=== PATIENT | male | born 1965 | race Caucasian/White ===

== ENCOUNTER 2022-05-27 18:39 | Emergency (ER) | payer SELFPAY ==
--- NOTE | 2022-05-27 18:50 | ED.GENADULT ---
HPI - General Adult General Chief complaint: Unspecified Stated complaint: high blood sugar Time Seen by Provider: 05/27/22 18:50 Source: patient, RN notes reviewed and old records reviewed Mode of arrival: ambulatory Limitations: no limitations History of Present Illness HPI narrative: 56-year-old male presents to the [facility] with concerns over high blood sugars. Patient states he has for a while had some fatigue, always thirsty, always urinating. Talk to his boss yesterday who checked his sugars with her glucometer and he reports that it reported as ?high? Today he was talking with his son's girlfriend who has a glucometer and checked it it was 460. Comes in today with concerns of having diabetes, on arrival blood sugar 416. Patient has not had a primary care provider in over 30 years. Denies any past medical or surgical history Onset (ago): week(s) Related Data Home Medications Medication Instructions Recorded Confirmed No Home Medications 05/27/22 05/27/22 Allergies Allergy/AdvReac Type Severity Reaction Status Date / Time No Known Allergies Allergy Verified 05/27/22 18:50 Review of Systems Review of Systems: All systems reviewed & are unremarkable except as noted in HPI and below Constitutional: Constitutional: Reports as per HPI, Reports fatigue and Reports lethargy Eyes: Eyes: Reports no additional eye complaints ENT: Reports system reviewed and no additional complaints, except as documented Cardiovascular: Cardiovascular: Reports no additional cardiovascular complaints, Denies chest pain and Denies dyspnea Respiratory: Respiratory: Reports no additional respiratory complaints, Denies chest congestion, Denies cough and Denies dyspnea Gastrointestinal: Gastrointestinal: Reports no additional gastrointestinal complaints, Denies abdominal pain, Denies nausea and Denies vomiting Musculoskeletal: Musculoskeletal: Reports no additional musculoskeletal complaints Integumentary/Breasts: Skin/Breast: Reports system reviewed and no additional complaints, except as docu Neurologic: Reports system reviewed and no additional complaints, except as documented Psychiatric: Psychiatric: Reports no additional psychiatric complaints Endocrine: Endocrine: Reports as per HPI, Reports fatigue, Reports polydipsia and Reports polyuria Allergic/Immunologic: Allergic/Immunologic: Reports no additional allergic/immunologic complaints PMFSH Comments At the time of my signature, I reviewed and agree with the nursing past medical, surgical, social, and family history. There is no relevant family history pertinent to the patient complaint. Exam Const: General: cooperative, healthy appearing, comfortable, no acute distress, well developed, alert and well nourished Nutritional Appearance: well nourished and obese morbidly obese Orientation/consciousness: patient oriented x3 Limitations: no limitations HENMT: Head: normal to inspection Ears: hearing grossly normal bilaterally and external ears normal Face/Nose/Sinus: Normal external nose present, Normal nares present, Normal nasal mucous membranes and turbinates present and normal facial exam Face and sinus: normal facial exam Mouth: Yes Normal oral and palatal mucosa present, Yes lip normal and Yes moist mucous membranes Eyes: General: appearance normal, both eyes and all related structures Alignment and Position: alignment normal Periorbital: periorbital findings normal Conjunctivae: conjunctivae normal Pupils: Equal, round and reactive pupils present EOM: EOMs intact bilaterally Neck: Neck: normal visual inspection, full ROM, no lymphadenopathy and no meningeal signs Chest: Chest palpation & inspection: normal inspection of the chest Resp: Effort & Inspection: normal respiratory effort and able to speak in complete sentences Auscultation: clear to auscultation bilaterally, no crackles, no rales, no rhonchi and no wheezes Cardio: Rate: regular rate Rhythm: regu
[2022-05-27 18:55] VITALS: BP 166/68; PULSE 84; RESP 20; TEMP 36.8; O2SAT 98
[2022-05-27 18:59] LABS: Glucose Point of Care 416 mg/dl (65-105)
== END 2022-05-27 19:03 | disposition home or self-care (01) ==
PROVIDERS: Emergency Provider Nurse Practitioner
DX: R73.9 Hyperglycemia, unspecified (principal)
CPT/HCPCS: 82948; 99212; G0463

== ENCOUNTER 2022-05-27 19:22 | Emergency (ER) | payer SELFPAY ==
[2022-05-27 19:27] VITALS: BP 155/63; PULSE 81; RESP 18; TEMP 36.3; O2SAT 95
--- NOTE | 2022-05-27 19:41 | ED.GENADULT ---
HPI - General Adult General Chief complaint: Recheck/Abnormal Lab/Rx Stated complaint: high blood glucose Time Seen by Provider: 05/27/22 19:29 History of Present Illness HPI narrative: 57-year-old male presented to the emergency department for evaluation of hyperglycemia. Patient states he has had increased urination, increased water consumption and generalized fatigue over the course of the last year. Patient does not have a current primary care physician and does not have follow-up. Patient states that his coworker brought a glucometer to test his blood sugar at work and it was read as high. Patient states that his [id number] is also diabetic so she checked his blood sugar and it read as 566. Patient denies any nausea vomiting diarrhea, denies any chest pain or shortness of breath. Patient states he does have intermittent numbness of bilateral hands usually worsened during sleeping. Patient denied any associated chest pain or shortness of breath. Patient denies any associated fevers. Related Data Allergies Allergy/AdvReac Type Severity Reaction Status Date / Time No Known Allergies Allergy Verified 05/27/22 19:22 Review of Systems Review of Systems: All systems reviewed & are unremarkable except as noted in HPI and below Exam Narrative: APPEARANCE: Well appearing, no pain, no distress, well-nourished. HEAD: normocephalic, atraumatic. EYES: PERRLA/EOMI, conjunctivae clear. NOSE: Normal no drainage NECK: Supple. No adenopathy, no masses. RESPIRATORY: Airway patent, respirations nonlabored. Clear to auscultation bilaterally, no rales, rhonchi, wheezing. CARDIOVASCULAR: Regular rate and rhythm without murmurs rubs or gallops. ABDOMINAL: Soft, nontender, nondistended, normal bowel sounds MUSCULOSKELETAL: Moves all extremities. Strength/ROM intact, No edema, No calf tenderness. NEURO: Alert. Cranial nerves II through XII intact. SKIN: Warm, dry. Normal Color Course Course Emergency Course: 57-year-old male with hyperglycemia. Patient was treated with IV fluids. Patient will be screened for DKA. Patient was hyperglycemic. Patient's blood sugars did improve with treatment. Patient's hemoglobin A1c was 10.8. Patient's beta hydroxybutyrate was not elevated, no concern for DKA. Patient was started on metformin and encouraged to have close follow-up with Dr. Breen. Patient was also educated on reasons to return to the ED. All questions and concerns were addressed. Vital Signs Vital signs: Vital Signs Temperature 97.4 F L 05/27/22 19:27 Pulse Rate 81 05/27/22 19:27 Respiratory Rate 18 05/27/22 19:27 Blood Pressure 155/63 H 05/27/22 19:27 Pulse Oximetry 95 05/27/22 19:27 Temperature 97.4 F L 05/27/22 19:27 Pulse Rate 68 05/27/22 21:56 Respiratory Rate 18 05/27/22 21:56 Blood Pressure 130/61 05/27/22 21:56 Pulse Oximetry 99 05/27/22 21:56 Medical Decision Making Vital Signs Vital Signs: Vital Signs Temperature 97.4 F L 05/27/22 19:27 Pulse Rate 81 05/27/22 19:27 Respiratory Rate 18 05/27/22 19:27 Blood Pressure 155/63 H 05/27/22 19:27 Pulse Oximetry 95 05/27/22 19:27 Temperature 97.4 F L 05/27/22 19:27 Pulse Rate 68 05/27/22 21:56 Respiratory Rate 18 05/27/22 21:56 Blood Pressure 130/61 05/27/22 21:56 Pulse Oximetry 99 05/27/22 21:56 Lab Data Lab results reviewed: Yes I reviewed the patient's lab results. 05/27/22 19:54 05/27/22 19:54 Labs: Lab Results 05/27/22 05/27/22 05/27/22 Range/Units 19:54 19:54 19:54 WBC 8.7 (4.5-10.0) K/mm3 RBC 4.72 (4.6-6.20) M/mm3 Hgb 14.4 (14.0-18.0) g/dL Hct 42.2 (42.0-52.0) % MCV 89.4 (80-100) fl MCH 30.5 (26-34) pg MCHC 34.1 (32-36) g/dl RDW 12.4 (11.5-14.5) % Plt Count 246 (150-375) k/mm3 MPV 10.8 H (7.4-10.4) fl Immature Gran % (Auto) 0.1 (0-0.5) % Neut % (Auto) 49.0 (45.5-73.1) % Lymph % (Auto)
--- NOTE | 2022-05-27 19:58 | PC.NURSE ---
Pt reports felling sick for over a year and that he hasn't seen a doctor in over 35 years. States his coworker checked his blood sugar yesterday and the meter read high . His son's girlfriend checked his blood sugar today and it was 535. Pt endorses polydipsia and polyuria. He also reports intermittent blurry vision and pins and needles in his hands. This RN educated pt on risks of uncontrolled diabetes such as increased risk of heart attack and stroke as well as kidney failure. Educated pt on importance of diet and exercise. Educated pt on restricting his carbohydrate intake and increasing amount of vegetables in his diet. Pt verbalized understanding.
[2022-05-27 20:00] LABS: Basophils Percent Auto 0.5 % (0.2-1.2); Eosinophils Absolute Auto 0.1 K/mm3 (0-0.3); Eosinophils Percent Auto 1.6 % (0-4.4); Hematocrit 42.2 % (42.0-52.0); Hemoglobin 14.4 g/dL (14.0-18.0); Immature Granulocyte Absolute 0.01 K/mm3 (0.00-0.031); Immature Granulocyte Percent A 0.1 % (0-0.5); Mean Corpuscular HGB Conc 34.1 g/dl (32-36); Mean Corpuscular Hemoglobin 30.5 pg (26-34); Mean Corpuscular Volume 89.4 fl (80-100); Mean Platelet Volume 10.8 fl (7.4-10.4); Monocytes Absolute Auto 0.8 K/mm3 (0.1-0.6); Monocytes Percent Auto 8.8 % (2.6-8.5); Neutrophils Absolute Auto 4.3 K/mm3 (1.3-6.7); Platelet Count Result 246 k/mm3 (150-375); Red Blood Count 4.72 M/mm3 (4.6-6.20); Red Cell Distribution Width 12.4 % (11.5-14.5); White Blood Count 8.7 K/mm3 (4.5-10.0)
[2022-05-27 20:10] LABS: Alanine Aminotransferase 28 U/L (6-50); Albumin Level 4.3 g/dL (3.5-5.1); Alkaline Phosphatase 105 U/L (38-126); Anion Gap 9 mmol/L (8-16); Aspartate Amino Transferase 30 U/L (17-59); Bilirubin,Total 0.7 mg/dL (0.2-1.3); Blood Urea Nitrogen 15 mg/dL (9-20); Calcium 9.1 mg/dL (8.4-10.2); Carbon Dioxide 28 mmol/L (22-30); Chloride 98 mmol/L (98-107); Estimated CRCL calculation 145 ml/min; Estimated Glomerular Filt Rate > 60; Glucose 430 mg/dL (65-110); Potassium 4.2 mmol/L (3.4-5.0); Sodium 135 mmol/L (137-145)
[2022-05-27 20:11] LABS: Lactic Acid Reflex 1.1 mmol/L (0.7-2.0)
[2022-05-27] MEDS: SODIUM CHLORIDE 0.9% IV 1,000 ML 999 ML IV CONT ×2 (20:11→20:42)
[2022-05-27 20:24] LABS: Beta-Hydroxybutyrate/Acetoacetate 0.34 mmol/L (0.02-0.27)
[2022-05-27 20:26] LABS: Hemoglobin A1C 10.8 % (<5.7)
[2022-05-27] MEDS: INSULIN HUMAN REGULAR (*BKC) 100 UNITS/ML 7 UNITS IV PUSH (20:42)
[2022-05-27 20:47] LABS: Glucose Point of Care 418 mg/dl (65-105)
[2022-05-27 20:48] LABS: Appearance Urine Clear (Clear); Bilirubin Urine Negative (Negative); Blood Urine Negative (Negative); Color Urine Yellow (Yellow); Glucose Urine UA 3+ mg/dL (Negative); Ketones Urine 1+ mg/dL (Negative); Leukocyte Esterase Ur Negative LEU/UL (Negative); Nitrate Urine Negative (Negative); Protein Urine Negative (Negative); Urobilinogen Urine 0.2 mg/dL (<2.0); pH Urine 5.5 (5.0-9.0)
[2022-05-27 20:59] LABS: Add Urine Microscopic? NO; Specific Grav Ur 1.043 (1.001-1.035)
--- NOTE | 2022-05-27 21:25 | PC.NURSE ---
Patients bedside glucose is 297.
[2022-05-27 21:26] LABS: Glucose Point of Care 297 mg/dl (65-105)
[2022-05-27 21:56] VITALS: BP 130/61; PULSE 68; RESP 18; O2SAT 99
== END 2022-05-27 21:57 | disposition home or self-care (01) ==
PROVIDERS: Emergency Provider Emergency Medicine
DX: E11.65 Type 2 diabetes mellitus with hyperglycemia (principal)
CPT/HCPCS: 36415; 80053; 81003; 82010; 82948; 83036; 83605; 85025; 96361; 96374; 99284; J1815; J7030

== ENCOUNTER 2024-08-06 07:59 | Emergency (ER) | payer SELFPAY ==
[2024-08-06 08:03] VITALS: BP 141/63; PULSE 85; RESP 16; TEMP 36.4; O2SAT 98
--- OUTSIDE RECORDS SUMMARY | 2024-08-06 08:03 | XMS_ITS | Continuity of Care Document ---
Author Organization [facility] Address [address] [place] [address] [place] [address] Phone Care Team Providers Care Ice Cream Van Vendor Name Role Phone Wesley Santana MD Unavailable Unavailable Allergies, Adverse Reactions, Alerts Substance Reaction Status Criticality No Known Allergies Active No Inform ation Medications Medication Instructions Dosage Effective Dates (start - stop) Status Comments Flexeril 10 mg tablet take 1 tablet (10MG) by oral route 2 times every day 10 MG - Active avoid driving or operate machines Vicodin ES 7.5 mg-750 mg tablet take 1 tablet by oral route every 6 hours as needed - Active PRN for pain, avoid driving or operate machines Procedures Procedure Date OFFICE/OUTPATIENT VISIT, [facility] Advance Directives Directive Yes / No Effective Date File Name No Information Encounters Encounter Description Practice Location Reason(s) For Visit Diagnoses Date Provider Providers Copied on Encounter [facility], [address] [place], [id number], tel:[phone] [facility] No Information [address]. [address], [address] [place], [id number] , [place]. tel:[phone] Referring Provider: Wesley Santana, [address], [id number]. tel:[phone] OFFICE/OUTPAT IENT VISIT, [facility], [address] [place], [id number], tel:[phone] [facility] pain (chief complaint) Dietary surveillance and counselingCHRONIC PAIN NEC [address], [place], [place], [id number] , [place]. tel:[phone] Referring Provider: Xena Burnham, [place], [place], [id number]. tel:[phone] Family History Family Member Type Diagnosis Age At Onset No Information Payers Payer name Insurance type Covered constitution party ID Authoriza tion(s) No Information Social History Type Description Quantity Date Captured Comments Sex Male Smoking Status No Information Chief Complaint And Reason For Visit No Information Plan Of Treatment Date Type Action Status No Information History Of Present Illness Encounter Date Complaint History Of Prese nt Illness No Information Instructions Date Instruction Additional Infor mation Dietary counseling Related to Di etary surveillance counseling Decrease caloric intake Related to Dietary surveillance counseling Assessments Type Assessment Date No Information
--- NOTE | 2024-08-06 08:11 | ED.SKABFB ---
HPI - Skin/Abscess/Foreign Bdy General Chief complaint: Skin/Abscess/Foreign Body Stated complaint: rash to R leg Time Seen by Provider: 08/06/24 08:06 History of Present Illness HPI narrative: Pt presents with redness to right chopra for several days getting worse and more tender. Pt denies injury or fever. Pt says was diabetic but quit taking meds awhile back. Pt not seeing PCP at this time. Related Data Allergies Allergy/AdvReac Type Severity Reaction Status Date / Time No Known Allergies Allergy Verified 08/06/24 08:00 Review of Systems Review of Systems: All systems reviewed & are unremarkable except as noted in HPI and below Exam Const: General: healthy appearing and no acute distress Nutritional Appearance: well nourished Orientation/consciousness: patient oriented x3 Limitations: no limitations HENMT: Head: normal to inspection Resp: Effort & Inspection: normal respiratory effort Auscultation: clear to auscultation bilaterally Cardio: Rate: regular rate Rhythm: regular rhythm GI: GI Palp: Yes Soft to palpation and No Tenderness to palpation present (GI) Auscultation: normal bowel sounds Skin: Other: erythema and tenderness to right leg anterior no abscess Neuro: General: patient oriented x3, moves all extremities and no focal motor deficits Speech: normal speech Extrem: General: normal to inspection and no clubbing, cyanosis or edema Psych: Mental Status: mental status grossly normal Affect: normal affect Attitude: cooperative Course Vital Signs Vital signs: Vital Signs Temperature 97.6 F 08/06/24 08:03 Pulse Rate 85 08/06/24 08:03 Respiratory Rate 16 08/06/24 08:03 Blood Pressure 141/63 H 08/06/24 08:03 Pulse Oximetry 98 08/06/24 08:03 Oxygen Delivery Room Air 08/06/24 08:03 Temperature 97.6 F 08/06/24 08:03 Pulse Rate 85 08/06/24 08:03 Respiratory Rate 16 08/06/24 08:03 Blood Pressure 141/63 H 08/06/24 08:03 Pulse Oximetry 98 08/06/24 08:03 Oxygen Delivery Room Air 08/06/24 08:03 MDM - Skin/Abscess/Foreign Bdy MDM Narrative Medical decision making narrative: Pt presents with erythema to rle. Pt has DM history but not currently on meds so will get some labs and give first dose of antibiotics IV. labs look ok other than elevated glucose. will send home on antibiotics and give number for new pcp. Lab Data 08/06/24 08:17 08/06/24 08:17 Labs: Lab Results 08/06/24 08/06/24 Range/Units 08:17 08:18 WBC 9.7 (4.5-10.0) K/mm3 RBC 4.46 L (4.6-6.20) M/mm3 Hgb 13.4 L (14.0-18.0) g/dL Hct 40.9 L (42.0-52.0) % MCV 91.7 (80-100) fl MCH 30.0 (26-34) pg MCHC 32.8 (32-36) g/dl RDW 13.2 (11.5-14.5) % Plt Count 187 (150-375) k/mm3 MPV 9.9 (7.4-10.4) fl Immature Gran % (Auto) 0.5 (0-0.5) % Neut % (Auto) 69.0 (45.5-73.1) % Lymph % (Auto) 18.2 L (18.3-44.2) % [place] % (Auto) 11.0 H (2.6-8.5) % Eos % (Auto) 1.1 (0-4.4) % Baso % (Auto) 0.2 (0.2-1.2) % Lymph # (Auto) 1.76 (0.9-3.2) K/mm3 [place] # (Auto) 1.1 H (0.1-0.6) K/mm3 Eos # (Auto) 0.1 (0-0.3) K/mm3 Baso # (Auto) 0.0 (0.0-0.1) K/mm3 Abs Immat Gran (auto) 0.05 H (0.00-0.031) K/mm3 Absolute Neuts (auto) 6.7 (1.3-6.7) K/mm3 Absolute Nucleated RBC 0.000 (0.0-0.012) K/mm3 Nucleated RBC % 0.0 (0.0-0.2) % Sodium 135 L (137-145) mmol/L Potassium 3.9 (3.4-5.0) mmol/L Chloride 101 (98-107) mmol/L Carbon Dioxide 25 (22-30) mmol/L Anion Gap 9 (4-12) mmol/L BUN 16 (9-20) mg/dL Creatinine 0.90 (0.7-1.3) mg/dL Estim Creat Clear Calc 113 ml/min Estimated GFR > 60 (59 - ) Glucose 164 H (65-110) mg/dL POC Capillary Glucose 176 H (65-105) mg/dl Calcium 9.3 (8.4-10.2) mg/dL Total Bilirubin 0.6 (0.2-1.3) mg/dL AST 38 (17-59) U/L ALT 37 (6-50) U/L Alkaline Phosphatase 100 (38-126) U/L Total Protein 7.7 (6.3-8.2) g/dL Albumin 3.9 (3.5-5.1) g/dL Discharge Plan Discharge Clinical Impression: Cellulitis Patient Disposition: Home Condition: Stable Instructions: Antibiotic Form, Cellulitis (ED) Patient Language: Dutch Prescriptions: New cephalexin 500 mg capsule 500 mg PO Q8H Qty: 30 0RF No Action metformin 500 mg tablet 500 mg PO BID 30 Days Qty: 60 0RF Follow-up/Referrals: PHYSICIAN,SPINNING FRAME CHANGER [Non-Staff] - Daniele Breen MD [Physician] -
[2024-08-06 08:22] LABS: Glucose Point of Care 176 mg/dl (65-105)
[2024-08-06 08:23] LABS: Basophils Percent Auto 0.2 % (0.2-1.2); Eosinophils Absolute Auto 0.1 K/mm3 (0-0.3); Eosinophils Percent Auto 1.1 % (0-4.4); Hematocrit 40.9 % (42.0-52.0); Hemoglobin 13.4 g/dL (14.0-18.0); Immature Granulocyte Absolute 0.05 K/mm3 (0.00-0.031); Immature Granulocyte Percent A 0.5 % (0-0.5); Lymphocytes Absolute Auto 1.76 K/mm3 (0.9-3.2); Lymphocytes Percent Auto 18.2 % (18.3-44.2); Mean Corpuscular HGB Conc 32.8 g/dl (32-36); Mean Corpuscular Volume 91.7 fl (80-100); Mean Platelet Volume 9.9 fl (7.4-10.4); Monocytes Absolute Auto 1.1 K/mm3 (0.1-0.6); Neutrophils Absolute Auto 6.7 K/mm3 (1.3-6.7); Platelet Count Result 187 k/mm3 (150-375); Red Blood Count 4.46 M/mm3 (4.6-6.20); Red Cell Distribution Width 13.2 % (11.5-14.5); White Blood Count 9.7 K/mm3 (4.5-10.0)
[2024-08-06 08:32] LABS: Alanine Aminotransferase 37 U/L (6-50); Albumin Level 3.9 g/dL (3.5-5.1); Alkaline Phosphatase 100 U/L (38-126); Anion Gap 9 mmol/L (4-12); Aspartate Amino Transferase 38 U/L (17-59); Bilirubin,Total 0.6 mg/dL (0.2-1.3); Blood Urea Nitrogen 16 mg/dL (9-20); Calcium 9.3 mg/dL (8.4-10.2); Carbon Dioxide 25 mmol/L (22-30); Chloride 101 mmol/L (98-107); Estimated CRCL calculation 113 ml/min; Estimated Glomerular Filt Rate > 60; Glucose 164 mg/dL (65-110); Potassium 3.9 mmol/L (3.4-5.0); Sodium 135 mmol/L (137-145); Total Protein 7.7 g/dL (6.3-8.2)
[2024-08-06] MEDS: ceFAZolin 1 GM/NS 50 ML 1 GM/50 ML BAG IVPB (08:42)
--- OUTSIDE RECORDS SUMMARY | 2024-08-06 08:43 | XMS_ITS | Continuity of Care Document ---
Author Organization [facility] Address [address] [place] [address] [place] [address] Phone Care Team Providers Care Knife Glazer Name Role Phone Wesley Santana MD Unavailable Unavailable Allergies, Adverse Reactions, Alerts Substance Reaction Status Criticality No Known Allergies Active No Inform ation Medications Medication Instructions Dosage Effective Dates (start - stop) Status Comments Vicodin ES 7.5 mg-750 mg tablet take 1 tablet by oral route every 6 hours as needed - Active PRN for pain, avoid driving or operate machines Flexeril 10 mg tablet take 1 tablet (10MG) by oral route 2 times every day 10 MG - Active avoid driving or operate machines Procedures Procedure Date OFFICE/OUTPATIENT VISIT, [facility] Advance Directives Directive Yes / No Effective Date File Name No Information Encounters Encounter Description Practice Location Reason(s) For Visit Diagnoses Date Provider Providers Copied on Encounter [facility], [address] [place], [place], [id number], tel:[phone] [facility] No Information [address], [address], [place], [id number] , [place]. tel:[phone] Referring Provider: Wesley Santana, [address], [id number]. tel:[phone] OFFICE/OUTPAT IENT VISIT, [facility], [address] [place], [id number], tel:[phone] [facility] pain (chief complaint) Dietary surveillance and counselingCHRONIC PAIN NEC [address], [place], [place], [id number] , [place]. tel:[phone] Referring Provider: Xena Burnham, [place], [place], [id number]. tel:[phone] Family History Family Member Type Diagnosis Age At Onset No Information Payers Payer name Insurance type Covered republican ID Authoriza tion(s) No Information Social History [...]
[2024-08-06 09:15] VITALS: BP 136/84; PULSE 88; RESP 14; O2SAT 99
== END 2024-08-06 09:16 | disposition home or self-care (01) ==
PROVIDERS: Emergency Provider Emergency Medicine
DX: L03.115 Cellulitis of right lower limb (principal)
CPT/HCPCS: 36415; 80053; 82948; 85025; 87040; 96365; 99284; J0690

== ENCOUNTER 2024-08-17 17:53 | Emergency (ER) | payer SELFPAY ==
--- NOTE | 2024-08-17 17:54 | ED_ITS ---
HPI - Skin/Abscess/Foreign Bdy General Chief complaint: Skin/Abscess/Foreign Body Stated complaint: Right Lower Leg Irritation Time Seen by Provider: 08/17/24 17:54 Source: patient Mode of arrival: ambulatory Limitations: no limitations History of Present Illness HPI narrative: Sebastián is a 59-year-old male patient presenting to the clinic today with complaints of right lower leg cellulitis. He reports he was seen at the ER for the same complaint and was given Keflex. He reports while taking the Keflex his cellulitis did not get any worse but it did not improved. Finished the Keflex this morning. Is concerned that if he is not on antibiotic his symptoms are going to worsen. He denies any fever but has had some chills. Denies any shortness of breath or chest pain. Does have pitting edema and the right lower extremity with circumferential redness to the entire right lower extremity above the foot and below the knee. Patient is a diabetic. Related Data Allergies Allergy/AdvReac Type Severity Reaction Status Date / Time No Known Allergies Allergy Verified 08/17/24 17:56 Review of Systems Review of Systems: Pertinent positives per HPI. Patient denies any fever, headache, visual changes, dizziness, cough, runny nose, sore throat, shortness of breath, chest pain, palpitations, nausea, vomiting, diarrhea, constipation, abdominal pain, or any urinary issues. PMFSH Comments At the time of my signature, I reviewed and agree with the nursing past medical, surgical, social, and family history. There is no relevant family history pertinent to the patient complaint. Exam Narrative: General: Well-developed, well nourished, in no apparent distress Head: Normocephalic, atraumatic. Cardio: Regular rate and rhythm, s1 and s2 normal, no murmur appreciated. Resp: Clear to auscultation bilaterally, no rhonchi, rales, wheezing or rubs. Musculoskeletal: No deformity, circumferential redness with erythema to the right lower extremity above the foot and below the knee, no open wounds, no drainage, tender to palpation over the right lower leg, grossly normal range of motion, muscle strength strong and equal, peripheral pulse strong, 2+ pitting edema, no cyanosis, normal gait and station Course Course Emergency Course: Portions of this record may have been created with voice recognition software. Level of Care: Express Care Visit Vital Signs Vital signs: Vital Signs Temperature 37.0 C 06/21/25 18:00 Pulse Rate 97 08/17/24 18:00 Respiratory Rate 16 08/17/24 18:00 Blood Pressure 147/62 H 08/17/24 18:00 Pulse Oximetry 98 08/17/24 18:00 Oxygen Delivery Room Air 08/17/24 18:00 Temperature 37.0 C 08/17/24 18:00 Pulse Rate 97 08/17/24 18:00 Respiratory Rate 16 08/17/24 18:00 Blood Pressure 147/62 H 08/17/24 18:00 Pulse Oximetry 98 08/17/24 18:00 Oxygen Delivery Room Air 08/17/24 18:00 Vital signs reviewed MDM - Skin/Abscess/Foreign Bdy MDM Narrative Medical decision making narrative: At the time of visit patient is resting comfortably on the exam table. Patient appears to be nontoxic. Plan: Reports that Keflex did not help resolve his symptoms. Will switch his antibiotic to Bactrim DS. Recommend follow-up with his primary care doctor in 2-3 days for recheck or go to the emergency room if symptoms worsen. Supportive measures were discussed with the patient and they voiced understanding discharge instructions and agrees to treatment plan. Return precautions reviewed Differential Diagnosis Differential diagnosis: Likely abscess of skin or subcutaneous tissue, viral exanthem, dermatophytosis, urticaria, herpes zoster, allergic reaction to drug, cellulitis, eczema, insect bites, impetigo and contact dermatitis Discharge Plan Discharge Clinical Impression: Cellulitis of leg, right Patient Disposition: Home Condition: Stable Instructions: Antibiotic Form, Cellulitis (ED) Additional Instructions: Take Bactrim as prescribed Increase fluids and stay well hydrated Keep leg elevated as much as possible May take Tylenol/Motrin as needed for pain or fever Follow-up with your primary care provider in 2-3 days for wound check Go to the emergency room if symptoms worsen-increase in swelling, increase in pain, fever not controlled by Tylenol Motrin, purulent discharge, increase in redness, or streaking Patient Language: Kinyarwanda Prescriptions: New sulfamethoxazole-trimethoprim [Bactrim DS] 800-160 mg tablet 1 tablet PO Q12H 10 Days Qty: 20 0RF No Action metformin 500 mg tablet 500 mg PO BID 30 Days Qty: 60 0RF Follow-up/Referrals: UNKNOWN,DOCTOR [Non-Staff] - Time of Disposition: 18:10 Quality NIHSS Nursing Documentation ED NIHSS nursing documentation: reviewed/agree
[2024-08-17 18:00] VITALS: BP 147/62; PULSE 97; RESP 16; TEMP 37; O2SAT 98
== END 2024-08-17 18:21 | disposition home or self-care (01) ==
PROVIDERS: Emergency Provider Nurse Practitioner Family
DX: L03.115 Cellulitis of right lower limb (principal)
CPT/HCPCS: 99213; G0463

== ENCOUNTER 2024-08-28 14:46 | Outpatient (CLI) | payer SELFPAY ==
--- OUTSIDE RECORDS SUMMARY | 2024-08-27 17:43 | XMS_ITS | Continuity of Care Document ---
Author Organization [place] - [facility] Address [address] [facility] [address] [place] [address] Assessment No assessment recorded. Plan of Treatment Reminders Order Date Submit Date Provider Last Modified By Organization Details Last Modified Time Details Appointments ANY 2024 02:30P M MICHAEL Kiser Not available Not available Not available ANY 2024 04:30P M MICHAEL Kiser Not available Not available Not available Lab BMP, serum or plasma 2024 025 [facility] Lab [address], [address] [facility] [address], [place], [address], 08/27/2024 18:25:32 Referral None recorded. Procedures None recorded. Surgeries None recorded. Imaging XR, tibia + fibula, 2 view - RT leg 2024 025 [facility], [address], [place], [address], 08/27/2024 18:25:34 Medication Orders doxycycli ne hyclate 100 mg capsule 2024 025 [facility] [place], [address] [facility], [place], [address], 08/27/2024 15:56:45 hydrochlo rothiazid e 25 mg tablet 2024 025 DY[id number], [address] [facility], [place], [place], [id number], 08/27/2024 15:56:49 Patient TargetsNo targets recorded. Patient InstructionsNo instructions recorded. Reason for Referral None Reported. Problems Name Problem SNOMED Code Status Onset Date Resolution Date Notes Provider Name and Address Organization Details Recorded Time Adult health examination Active 2024 MICHAEL Kiser Attn: Palmira bazzi,[address], [place], [address], [facility] - [place] 07:05:38 Edema of lower leg 817825051 Active 2024 [place] rosie, [place] - [place] 16:38:17 Acute cellulitis Active 2024 [place] rosie, [place] - [facility] 16:38:19 Problem Notes None recorded. Medical Equipment None Reported. Allergies No known drug allergies Medications Name Sig Start Date Stop Date Status Note LastModified by Organization Details LastModified Time doxycycline hyclate 100 mg capsule Take 1 capsule twice a day by oral route. 2024 active Not Available Not Available Not Avai lable Sulfamethoxa zole-TMP DS 160 mg-800 mg tablet Take 1 tablet every 12 hours by oral route for 10 days. 2024 active Not Available Not Available Not Avai lable cephalexin 500 mg capsule TAKE 1 CAPSULE BY MOUTH EVERY 8 HOURS 08/20 completed Not Available Not Available Not Available hydrochlorot hiazide 25 mg tablet Take 1 tablet every day by oral route. 2024 active Not Available Not Available Not Avai lable Vitals Date Recorded Body height Body mass index (BMI) Body weight Oxygen saturation Oxygen saturation in Arterial blood by Pulse oximetry Heart rate Systolic blood pressure Diastolic blood pressure Provider Name and Address Organization Details Last Updated DateTime 171.2 cm 49.9 kg/m2 937934. 79 g 97 % 97 % 76 /min 124 mm[Hg] 62 mm[Hg] Jose Cheek [place] - [place] 15:44:35 Social History Question Answer Notes LastModified by Organizat ion Details LastModified Time Tobacco Smoking Status Current Every Day Smoker RICK Bhakta, [place] - [place] 08/20/2024 16:52:10 What Is Your Level Of Caffeine Consumption? None Information not available 08/20/2024 What Was The Date Of Your Most Recent Tobacco Screening? 08/27/2024 Information not available 08/27/2024 At What Age Did You Start Smoking Tobacco? 35 Information not available 08/20/2024 How Much Tobacco Do You Smoke? 2 PPW Information not available 08/20/2024 Has Tobacco Cessation Counseling Been Provided? Yes Information not available 08/20/2024 On What Date Was Tobacco Cessation Counseling Provided? 08/27/2024 Information not available 08/27/2024 Sex: Unknown Functional Status Question Answer Note LastModified by Organizat ion Details LastModified Time Do you use any illicit or recreational drugs? Yes marijuana Information not available 08/20/2024 Do you or have you ever used any other forms of tobacco or nicotine? No Information not available 08/20/2024 What is your level of alcohol consumption? None Information not available 08/20/2024 Mental Status None recorded. Family History Nothing Reported. Medical History No medical history recorded. Past Encounters Encounter ID Performer Location Encounter Start Date Encounter Closed Date Diagnosis/Indication Diagnosis SNOMED-CT Code Diagnosis ICD10 Code Diagnosis Note [id number] Roberto Valero DO [facility] [place] [address] [address] 08/20/2024 16:01:25 08/21/2024 10:02:48 Adult health examination 731156596 Z00.00 Healthy diet and exercise, HCM as discussed Edema of lower leg 31852 7004 R60.0 holland wraps/comp ression socks, elevate leg, hctz 25 mg Acute cellulitis 4660407 009 L03.90 take bactrim bid, wash with soap and water daily [id number] Roberto Valero DO [facility] [employer] [facility] [place] [address] [address] 08/27/2024 15:23:53 08/27/2024 16:18:50 Edema of lower leg 359565246 R60.0 holland wraps/comp ression socks, elevate leg, hctz 25 mg Acute cellulitis 3436216 009 L03.90 I am concerned wound is healed but still with localized infection, getting x-ray of leg, 1 gm rocephin doxy and probiotic, no fevers, go to ER for s/s as discussed Health Concerns Section Related Observation LastModified by Organization Detai ls LastModified Time None Recorded Concern Status LastModified by Organization Details LastModified Time None Recorded Payers Encounter Date Sequence Insurance Name Policy Number Policy Patten Covered Member ID Patten Member ID Guarantor Name 08/27/2024 1 *SELF PAY* Clarissa Brown Notes Date Note Type Note Provider Name and Address Organization Details Recorded Time 08/27/2024 text/html Patient is in fo r routine follow up for the following medical conditions -smoker: 2 packs per week-exercise: walking-colonoscop y:never, we discussed-Shingles : we discussed-Pneumoco ccal:-Flu shot: no-Covid shots: initial cellulitis right lower leg, seen in ER given keflex, went [facility] got bactrim,now out of antibiotics MICHAEL Kiser Attn: Accounting[address] [facility], [place], [address], [facility] - [place] 08/27/2024 17:01:40
--- OUTSIDE RECORDS SUMMARY | 2024-08-27 17:44 | XMS_ITS | Clinical Summary ---
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 60 tablet 12/02/2018 Active Social History Tobacco Use Types Packs/Day Years Used Date Smoking Tobacco: Every Day Cigarettes Smokeless Tobacco: Never Alcohol Use Standard Drinks/Week Comments No 0 (1 standard drink = 0.6 oz pur e alcohol) AUDIT-C Answer Date Recorded Frequency of Alcohol Consumption Never 12/02/2018 Average Number of Drinks Not on file 019 Frequency of Binge Drinking Not on file 07/2018 Sex and Gender Information Value Date Recorded Sex Assigned at Not on file Legal Sex Male 8:11 PM CDT Gender Identity Not on file Sexual Orientation Not on file Last Filed Vital Signs Vital Sign Reading Time Taken Comments Blood Pressure 157/99 12/02/2018 12:00 PM CDT Pulse 76 12/02/2018 12:00 PM CDT Temperature 36.7 C (98 F) 12/02/2018 12:00 PM CDT Respiratory Rate 18 12/02/2018 12:00 PM CDT Oxygen Saturation 95% 12/02/2018 12:00 PM CDT Inhaled Oxygen Concentration - - Weight 145.2 kg (320 lb) 12/02/2018 12:00 PM CDT Height 177.8 cm (5' 10) 12/02/2018 12:00 PM CDT Body Mass Index 45.92 12/02/2018 12:00 PM CDT Plan of Treatment Health Maintenance Due Date Last Done Comments Colorectal Cancer Screening Colonoscopy (10 Years) 1965 Annual Physical 1968 Hepatitis C 1983 DTaP, Tdap and Td Vaccines ( 1 - Tdap) 1984 Pneumococcal Vaccine: 50+ Ye ars (1 of 2 - PCV) 1984 Zoster Vaccines (1 of 2) 2015 COVID-19 Vaccine (1 - 2023-2 5 season) 2023 Meningococcal B Vaccine Aged Out No l onger eligible based on patient's age to complete this topic Meningococcal Vaccine Aged Out No ankit thao eligible based on patient's age to complete this topic RSV Immunizations Under 20 Months Aged Out No longer eligible based on patient's age to complete this topic Insurance [facility] Care Teams Orthodontist Small Business Owner Relationship Specialty Start Date End Date None, Provider, PCP - General 12/02/18
--- OUTSIDE RECORDS SUMMARY | 2024-08-27 17:44 | XMS_ITS | Continuity of Care Document ---
Author Organization [facility] Address [address] [place] [address] [place] [address] Phone Care Team Providers Care Gripper Attacher Name Role Phone Welsey Santana MD Unavailable Unavailable Allergies, Adverse Reactions, [...] operate machines Procedures Procedure Date OFFICE/OUTPATIENT VISIT, [facility] Advance Directives Directive Yes / No Effective Date File Name No Information Encounters Encounter Description Practice Location Reason(s) For Visit Diagnoses Date Provider Providers Copied on Encounter [facility], [address] [place], [id number], tel:[phone] [facility] No Information 3 Max Olson. [address], [address] [place], [address] , [place]. tel:[phone] Referring Provider: Wesley Santana, [address] [place], [place], [id number]. tel:[phone] OFFICE/OUTPAT IENT VISIT, [facility], [address] [place], [address], tel:[phone] [facility] pain (chief complaint) Dietary surveillance and counselingCHRONIC PAIN NEC 3 Max Olson. [address], [place], [place], [address] , [place]. tel:[phone] Referring Provider: Xena Burnham, [place], [place], [address]. tel:[phone] Family History Family Member Type Diagnosis Age [...]
--- OUTSIDE RECORDS SUMMARY | 2024-08-27 17:44 | XMS_ITS | Data Portability ---
Author Organization [facility] Address [address] [place] [address] Assessment No assessment recorded. Plan of Treatment Reminders Order Date Submit Date Provider Last Modified By Organization Details Last Modified Time Details Appointments ANY 2024 02:30P M MICHAEL Kiser Not available Not available Not available ANY 2024 04:30P M MICHAEL Kiser Not available Not available Not available Lab BMP, serum or plasma 2024 025 [facility] [address] [facility], [address], [facility] [address], [place], [address], 08/27/2024 18:25:32 BMP, serum or plasma 2024 025 [facility] [address] [facility], [address], [facility] [address], [place], [address], 08/22/2024 00:53:57 Referral None recorded. Procedures None recorded. Surgeries None recorded. Imaging XR, tibia + fibula, 2 view - RT leg 2024 025 [facility], [address] [facility] [address], [place], [address], 08/27/2024 18:25:34 Medication Orders doxycycli ne hyclate 100 mg capsule 2024 025 [facility] In [facility], [address] , [place], [address], 08/27/2024 15:56:45 hydrochlo rothiazid e 25 mg tablet 2024 025 [facility], [address], [place], [place], [id number], 08/27/2024 15:56:49 hydrochlo rothiazid e 25 mg tablet 2024 025 [facility] #54982, [address], [place], [place], [id number], 08/20/2024 17:14:54 Patient TargetsNo targets recorded. Patient InstructionsNo instructions recorded. Reason for Referral None Reported. Results Created Date Observation Date Name Description Value Unit Range Abnormal Flag Note LastModifiedBy Organization Detail LastModifiedTime 08/22/1908/21/2024 BASIC METAB OLIC PANEL sodium 140 mmol/ L 134-14 4 normal Not Available [facility] (Lab) [address] [place], [address], 08/22/2024 00:53:57 08/22/1908/21/2024 BASIC METAB OLIC PANEL potassium 5.4 mmol/ L 3.5-5. 2 high Not Available [facility] [address] [place], [address], 08/22/2024 00:53:57 08/22/1908/21/2024 BASIC METAB OLIC PANEL chloride 102 mmol/ L 96-106 normal Not Available [facility] (Lab) [address] [place], [address], 08/22/2024 00:53:57 08/22/19 25 08/21/2024 BASIC METAB OLIC PANEL carbon dioxide 27 mmol/ L 20-29 normal Not Available [facility] (Lab) [address] [place], [address], 08/22/2024 00:53:57 08/22/19 25 08/21/2024 BASIC METAB OLIC PANEL anion gap 16.0 mmol/ L Not Available [facility] (Lab) [address] [place], [address], 08/22/2024 00:53:57 08/22/19 25 08/21/2024 BASIC METAB OLIC PANEL blood urea nitrogen 19 mg/dL 6-24 normal Not Available [facility] (Lab) [address], [place], [address], 08/22/2024 00:53:57 08/22/1908/21/2024 BASIC METAB OLIC PANEL creatinine 1.29 mg/dL 0.76-1 .27 high Not Available [facility] (Lab) [address] [place], [address], 08/22/2024 00:53:57 08/22/1908/21/2024 BASIC METAB OLIC PANEL glomerular filtration rate 64 mL/mi n/1 Not Available [facility] (Lab) [address] [place], [address], 08/22/2024 00:53:57 08/22/19 25 08/21/2024 BASIC METAB OLIC PANEL BUN creatinine ratio 15 9-20 normal Not Available [facility] (Lab) [address] [place], [address], 08/22/2024 00:53:57 08/22/1908/21/2024 BASIC METAB OLIC PANEL glucose 115 mg/dL 70-99 high Not Available [facility] (Lab) [address] [place], [address], 08/22/2024 00:53:57 08/22/1908/21/2024 BASIC METAB OLIC PANEL osmolality calculated 283 275-29 5 normal Not Available [facility] (Lab) [address] [place], [address], 08/22/2024 00:53:57 08/22/19 25 08/21/2024 BASIC METAB OLIC PANEL calcium 9.8 mg/dL 8.7-10 .2 normal Not Available [facility] (Lab) [address] [place], [address], 08/22/2024 00:53:57 08/22/1908/21/2024 BASIC METAB OLIC PANEL hemolysis 5 0-19 Not Available [facility] (Lab) [address] [place], [address], 08/22/2024 00:53:57 08/22/1908/21/2024 BASIC METAB OLIC PANEL icterus 0 0.5-4. 9 Not Available [facility] (Lab) [address] [place], [address], 08/22/2024 00:53:57 08/22/1908/21/2024 BASIC METAB OLIC PANEL lipemia 20 0-99 Not Available [facility] (Lab) [address] [place], [address], 08/22/2024 00:53:57 Result Notes None recorded. Problems Name Problem SNOMED Code Status Onset Date Resolution Date Notes Provider Name and Address Organization Details Recorded Time Adult health examination Active 2024 MICHAEL Kiser Attn: Palmira bazzi,[address] [facility], [place], [address], [facility] 5 07:05:38 Edema of lower leg 769445335 Active 2024 [facility], [facility] 5 16:38:17 Acute cellulitis Active 2024 [facility], [place] - [facility] 5 16:38:19 Problem Notes None recorded. Medical Equipment [...] active Not Available Not Available Not Avai labcheco Vitals Date Recorded Oxygen saturation Oxygen saturation in Arterial blood by Pulse oximetry Heart rate Respiratory rate Body height Body mass index (BMI) Body weight Provider Name and Address Organization Details Last Updated DateTime 97 % 97 % 84 /min 23 /min 171.2 cm 49.9 kg/m2 795192. 14 g [facility] 16:48:48 Date Recorded Systolic blood pressure Diastolic blood pressure Provider Name and Address Organization Details Last Updated DateTime 08/20/2024 122 mm[Hg] 74 mm[Hg] Bernadette Castañeda LPN [facility] 08/20/2024 17:20:29 Date Recorded Body height Body mass index (BMI) Body weight Oxygen saturation Oxygen saturation in Arterial blood by Pulse oximetry Heart rate Systolic blood pressure Diastolic blood pressure Provider Name and Address Organization Details Last Updated DateTime 171.2 cm 49.9 kg/m2 937556. 79 g 97 % 97 % 76 /min 124 mm[Hg] 62 mm[Hg] Jose Cheek MA [facility] 5 15:44:35 Social History Question Answer Notes LastModified by [employer] Details LastModified Time Tobacco Smoking Status Current Every Day Smoker [place], [place] null, [facility] 08/20/2024 16:52:10 What Is Your Level Of [...] Functional Status Question Answer Note LastModified by stylemarks ion Details LastModified Time Do you use [...] SNOMED-CT Code Diagnosis ICD10 Code Diagnosis Note [id number] Roberto Valero, DO [facility] [place] [address] [place] [address] 08/20/2024 16:01:25 08/21/2024 10:02:48 Adult health examination 028569010 Z00.00 Healthy diet and exercise, HCM as discussed Edema of lower leg 25667 7004 R60.0 holland wraps/comp ression socks, elevate leg, hctz 25 mg Acute cellulitis 4664778 009 L03.90 take bactrim bid, wash with soap and water daily [id number] Roberto Valero, DO [facility] [place] [address] [facility] [address] [place] [address] 08/27/2024 15:23:53 08/27/2024 16:18:50 Edema of lower leg 284659918 R60.0 holland wraps/comp ression socks, elevate leg, hctz 25 mg Acute cellulitis 8831353 009 L03.90 I am concerned wound is healed but still with localized infection, getting x-ray of leg, 1 gm rocephin doxy and probiotic, no fevers, go to ER for s/s as discussed Health Concerns Section Related Observation LastModified by Organization Detai ls LastModified Time None Recorded Concern Status LastModified by Organization Details LastModified Time None Recorded Advance Directives Directive None Recorded Payers Insurance Date Sequence Insurance Name Policy Number Policy Patten Covered Member ID Patten Member ID Guarantor Name 08/20/2024 SLIDING FEE SCHEDULE - DISCOUNT Sebastián Brown 08/19/2024 1 *SELF PAY* Clarissa Brown Notes Date Note Type Note Provider Name and Address Organization Details Recorded Time 08/20/2024 text/html New patient in t o establish with PCM and f/u for the following medical conditions Annual physical -smoker: 2 packs per week-exercise: walking-colonoscop y:never, we discussed-Shingles : we discussed-Pneumoco ccal:-Flu shot: no-Covid shots: initial cellulitis right lower leg, seen in ER given keflex, went [facility] got bactrim, been on this 3 days kind of feels better but MICHAEL Kiser Attn: Accounting[address] [place], [address], [facility] 08/20/2024 17:42:48 08/27/2024 text/html Patient is in fo r routine follow up for the following medical conditions -smoker: 2 packs per week-exercise: walking-colonoscop y:never, we discussed-Shingles : we discussed-Pneumoco ccal:-Flu shot: no-Covid shots: initial cellulitis right lower leg, seen in ER given keflex, went [facility] got bactrim,now out of antibiotics MICHAEL Kiser Attn: Accounting,[address] [place], [address], [place] - [facility] 08/27/2024 17:01:40
--- NOTE | ~2024-08-28 | XR_ITS ---
AP and lateral views of the right tibia/fibula Clinical History: Edema Findings: No acute fracture or dislocation is seen. Osseous alignment is anatomic. Joint spaces are p reserved without significant erosive or degenerative change. There is nonspecific subcutaneous soft t issue edema, especially laterally. Impression: Nonspecific subcutaneous soft tissue edema. No osseous or articular abnormality. Reviewed, dictated and finalized at [facility]. Impression: Nonspecific subcutaneous soft tissue edema. No osseous or articular abnormality.
--- OUTSIDE RECORDS SUMMARY | 2024-08-28 14:53 | XMS_ITS | Continuity of Care Document ---
Author Organization [facility] Address [address] [place] [address] [place] [address] Phone Care Team Providers Care Globe Cleaner Name Role Phone Wesley Santana MD Unavailable [...] operate machines Procedures Procedure Date OFFICE/OUTPATIENT VISIT, [facility] Advance Directives Directive Yes / No Effective Date File Name No Information Encounters Encounter Description Practice Location Reason(s) For Visit Diagnoses Date Provider Providers Copied on Encounter [facility], [address] [place] [place], [address], tel:[phone] [facility] No Information 3 Max Olson. [address], [place], [address] , [place]. tel:[phone] Referring Provider: Wesley Santana, [address] [place], [address]. tel:[phone] OFFICE/OUTPAT IENT VISIT, [facility], [address] [place] [place], [address], tel:[phone] [facility] pain (chief complaint) Dietary surveillance and counselingCHRONIC PAIN NEC 3 Max Olson. [address], [place], [place], [address] , [place]. tel:[phone] Referring Provider: Xena Burnham, [place], [place], [address]. tel:[phone] Family History Family Member Type Diagnosis Age At Onset No Information Payers Payer name Insurance type Covered libertarian ID Authoriza tion(s) No Information Social History [...]
--- OUTSIDE RECORDS SUMMARY | 2024-08-28 14:53 | XMS_ITS | Clinical Summary ---
Author Organization [facility] Address [facility] [place] [address] Care Team Providers Care Spiral Runner Name Role Phone None, Provider MD Primary [...] Insurance [facility] Care Teams Spiral Runner Relationship Specialty Start Date End Date None, Provider, PCP - General 12/02/18
== END 2024-08-28 14:47 | disposition home or self-care (01) ==
PROVIDERS: PCP Physician Assistant; Visit Provider Physician Assistant
DX: R60.0 Localized edema (principal)
CPT/HCPCS: 73590